=== PATIENT | female | born 1990 | race Caucasian/White ===

== ENCOUNTER 2016-06-04 15:37 | Emergency (ER) | payer OTHER ==
[2016-06-04 16:05] VITALS: BP 105/63
--- NOTE | 2016-06-04 16:46 | UC ---
Dental HPI - HPI Summary HPI Summary: PT HAD 4 UPPER FRONT TEETH GROUND DOWN AND CAPS PLACED THIS MORNING 8:30AM BY DR. COLEY AT [facility]. HAS HAD BLEEDING AND PAIN SINCE THE PROCEDURE. COMES IN NOW WITH RIGHT LATERAL INCISOR AND CANINE ENCASED IN A LARGE BLOOD CLOT. PT HAS IBUPROFEN AND AMOXICILLIN FROM DENTIST. - History of Current Complaint Chief Complaint: UCDentalProblem Stated Complaint: DENTAL ABCESS FROM PROCEDURE Time Seen by Provider: 06/04/16 16:15 Hx Obtained From: Patient Hx Last Menstrual Period: IUD Onset/Duration: Gradual Onset, Lasting Hours, Still Present Severity: Moderate Pain Intensity: 8 Pain Scale Used: 0-10 Numeric Aggravating: Nothing Alleviating: Nothing - Allergies/Home Medications Allergies/Adverse Reactions: Allergies Allergy/AdvReac Type Severity Reaction Status Date / Time No Known Allergies Allergy Verified 06/04/16 15:55 PMH/Surg Hx/FS Hx/Imm Hx Endocrine History Of: Denies: Diabetes, Thyroid Disease Cardiovascular History Of: Denies: Cardiac Disorders, Hypertension Respiratory History Of: Reports: Asthma - excercise induced Denies: COPD GI/ History Of: Denies: Ulcer Neurological History Of: Denies: CVA - Surgical History Surgical History: Yes Surgery Procedure, Year, and Place: 2 CSECTIONS - Family History Known Family History: Positive: Cardiac Disease, Blood Disorder - DVT, Other - CVA - Social History Alcohol Use: None Substance Use Type: None Smoking Status (MU): Heavy Every Day Tobacco Smoker Type: Cigarettes Amount Used/How Often: 1/2 PPD Length of Time of Smoking/Using Tobacco: 7 YEARS Have You Smoked in the Last Year: Yes Household Exposure Type: Cigarettes Review of Systems Constitutional: Negative Skin: Negative ENT: Dental Pain - BLEEDING Respiratory: Negative Cardiovascular: Negative Gastrointestinal: Negative All Other Systems Reviewed And Are Negative: Yes Physical Exam Triage Information Reviewed: Yes Appearance: Well-Appearing, Well-Nourished, Pain Distress - MODERATE Vital Signs: Initial Vital Signs Temp 98.5 F 06/04/16 15:56 Pulse 66 06/04/16 15:56 Resp 18 06/04/16 15:56 BP 105/63 06/04/16 15:56 Pulse Ox 99 06/04/16 15:56 Vital Signs Reviewed: Yes Eyes: Positive: Conjunctiva Clear ENT: Positive: Hearing grossly normal Dental: Positive: Other: - GENERAL POOR DENTITION. RIGHT UPPER LATERAL INCISOR AND CANINE ENCLOSED IN A BLOOD CLOT. Neck: Positive: Supple Respiratory: Positive: No respiratory distress, No accessory muscle use Cardiovascular: Positive: Pulses Normal Abdomen Description: Positive: Soft Musculoskeletal: Positive: No Edema Neurological: Positive: Alert Psychological: Positive: Age Appropriate Behavior Skin: Negative: rashes Dental Complaint Course/Dx - Course Course Of Treatment: BLOOD CLOT CLEANED OFF. MOUTH GENTLY RINSED WITH SALINE. NO ACTIVE BLEEDING SEEN. - Differential Dx/Diagnosis Provider Diagnoses: BLOOD CLOT S/P DENTAL PROCEDURE - Physician Notification/Consults Discussed Patient Care With: DR. SAM COLEY (DENTIST) Time Discussed With Above Provider: 16:25 - ADVISED TO CLEAN CLOT OFF. WILL SEE PT IN OFFICE IF NEEDED Discharge - Discharge Plan Condition: Stable Disposition: HOME Prescriptions: Hydrocodone-Acetaminophen [Lorcet 5-325 mg] 1 tab PO QID PRN #10 tab MDD 4 PRN Reason: Pain Referrals: Katlin Draper MD [Primary Care Provider] - If Needed Additional Instructions: YOU HAD SOME RESIDUAL BLEEDING FROM YOUR DENTAL PROCEDURE EARLIER TODAY. IT FORMED A BLOOD CLOT AROUND YOUR TEETH. THIS HAS BEEN CLEANED OFF. YOU DO NOT APPEAR TO HAVE ANY MORE ACTIVE BLEEDING BUT IF YOU DO CONTINUE TO OOZE PUT PRESSURE ON IT WITH CLEAN GAUZE. THIS SHOULD STOP OVER THE NEXT DAY OR 2. IF YOU DO NOT RECOVER EXPECTED FOLLOW-UP WITH DR. COLEY ON TUESDAY. RETURN HERE OR GO TO THE ER IF YOUR SYMPTOMS WORSEN OVER THE WEEKEND. GENTLY RINSE YOUR MOUTH THROUGHOUT THE DAY TO KEEP THE AREA CLEAN.
== END 2016-06-04 16:53 | disposition home or self-care (01) ==
LOC: UCEAST 15:37
DX: Z98.811 Dental restoration status (principal); T81.89XA Other complications of procedures, not elsewhere classified, initial encounter; F17.210 Nicotine dependence, cigarettes, uncomplicated
CPT/HCPCS: 99212; G0463

== ENCOUNTER 2016-07-16 14:27 | Emergency (ER) | payer SELFPAY ==
[2016-07-16] MEDS ORDERED: Ketorolac INJ* 60 MG/2 ML VIAL IM ONE (15:38)
--- NOTE | 2016-07-16 15:41 | UC ---
Upper Extremity HPI - HPI Summary HPI Summary: 25M presents with left wrist pain s/p smashing a bowl against her hand on Tuesday at work. She states pain is greatest over radial aspect of her hand. She is right handed. She has been taking ibuprofen 800 mg and Tylenol 500mg every 8 hours without relief. [facility] was seen at [facility] and they said she had a contusion. She was given a brace which she has been wearing. She has been icing the area. She works as gaming cage cashier and stocks shelves. - History of Current Complaint Hx Last Menstrual Period: IUD <Jeannine Bustos - Last Filed: 07/16/16 18:03> <Deana Julian - Last Filed: 07/17/16 00:48> - History of Current Complaint Stated Complaint: WRIST INJURY Time Seen by Provider: 07/16/16 15:30 - Allergies/Home Medications Allergies/Adverse Reactions: Allergies Allergy/AdvReac Type Severity Reaction Status Date / Time Clindamycin Allergy Vomiting Verified 07/16/16 16:00 Home Medications: Home Medications Acetaminophen [Acetaminophen Extra Stren] 500 mg PO 07/16/16 [History] Ibuprofen [Advil] 800 mg PO 07/16/16 [History] PMH/Surg Hx/FS Hx/Imm Hx Endocrine History Of: Denies: Diabetes, Thyroid Disease Cardiovascular History Of: Denies: Cardiac Disorders, Hypertension Respiratory History Of: Reports: Asthma - excercise induced Denies: COPD GI/ History Of: Denies: Ulcer Neurological History Of: Denies: CVA - Surgical History Surgical History: Yes Surgery Procedure, Year, and Place: 2 CSECTIONS - Family History Known Family History: Positive: Cardiac Disease, Blood Disorder - DVT, Other - CVA - Social History Alcohol Use: None Substance Use Type: None Smoking Status (MU): Heavy Every Day Tobacco Smoker Type: Cigarettes Amount Used/How Often: 1/2 PPD Length of Time of Smoking/Using Tobacco: 7 YEARS Have You Smoked in the Last Year: Yes Household Exposure Type: Cigarettes <Jeannine Bustos - Last Filed: 07/16/16 18:03> Review of Systems Constitutional: Negative Respiratory: Negative Cardiovascular: Negative Musculoskeletal: Decreased ROM - left wrist, Myalgia - left wrist All Other Systems Reviewed And Are Negative: Yes <Jeannine Bustos - Last Filed: 07/16/16 18:03> Physical Exam Triage Information Reviewed: Yes Vital Signs Reviewed: Yes Eyes: Positive: Conjunctiva Clear Respiratory: Positive: Lungs clear, Normal breath sounds Cardiovascular: Positive: RRR Musculoskeletal: Positive: ROM Limited @ - left wrist due to pain, Other: - good pulses, capillary refill < 2 secs, tenderness along radial aspect of wrist , pos snuff box tenderness <Jeannine Bustos - Last Filed: 07/16/16 18:03> Vital Signs: Initial Vital Signs Temp 99.1 F 07/16/16 15:56 Pulse 86 07/16/16 15:56 Resp 18 07/16/16 15:56 BP 127/87 07/16/16 15:56 Pulse Ox 98 07/16/16 15:56 <Deana Julian - Last Filed: 07/17/16 00:48> Upper Extremity Course/Dx - Course Course Of Treatment: 25F presents with left wrist injury on Tuesday07/13/16. according to patient she was trying to throw some trash in the dumpster when her co-worker threw a glass bowl at her left wrist. she states the bowl struck her along the distal end of the radius. She states her pain has spread into her left thumb. She denies any numbness or tingling. [facility] was [facility] and had neg xray and given a wrist splint. due to potential tenderness in snuff box got repeat xray which normal. placed in thumb spica splint in case has scaphoid fracture. told to follow up with ortho. patient was not happy that would not give narcotics as did not feel mechanism justified. dr julian spoke with patient and wrote script for pain medication. patient understands and agrees with plan - Differential Dx/Diagnosis Differential Diagnosis/HQI/PQRI: Contusion, Fracture (Closed), Strain, Sprain Provider Diagnoses: contusion of left wrist <Jeannine Bustos - Last Filed: 07/16/16 18:03> - Course Course Of Treatment: THE FOLLOWING IS AN ADDENDUM WRITTEN BY DR JULIAN: I WAS ASKED BY NURSING TO SEE PT SHE WAS COMPLAINING ABOUT PLAN OF CARE. I REVIEWED THE NOTE. PT SEEN AND EXAMINED BY ME. H&P C/W WITH [facility] REPORTING. PHYSICAL EXAM IS NOTABLE FOR SNUFF BOX TENDERNESS. AT THIS POINT, MY ASSESSMENT AND PLANNED DIVERGES FROM [facility]. EVEN THOUGH MECHANISM OF INJURY IS NOT THE TYPICAL CAUSE OF SCAPHOID FX, PT DOES HAVE EXQUISITE SNUFF BOX TENDERNESS. I ALWAYS TREAT SNUFF BOX TENDERNESS A FX UNTIL PROVEN OTHERWISE. SO I HAVE ADDED THE DX SUSPECTED FX. I THEREFORE REVISED PLAN OR CARE RECOMMEDING ORTHO FOLLOW UP AT 7 DAYS S/P INJURY, CONTINUOUS USE OF THUMB SPICA SPLINT UNTIL CLEARED BY ORTHO. I ALSO GAVE PT SHORT COURSE OF TYLENOL 3 FOR PAIN CONTROL AND D/C'ED NSAIDS. - Differential Dx/Diagnosis Provider Diagnoses: SUSPECTED FX- R/O SCAPHOID FX <Deana Julian - Last Filed: 07/17/16 00:48> Discharge <Jeannine Bustos - Last Filed: 07/16/16 18:03> <Deana Julian - Last Filed: 07/17/16 00:48> - Discharge Plan Condition: Good Disposition: HOME Prescriptions: Acetaminop/Codeine 30 MG TAB* [Tylenol/Codeine 30 MG TAB*] 1 tab PO Q6H PRN #14 tab MDD 4 tabs PRN Reason: Pain Patient Education Materials: Wrist Injury (ED), Suspected Fracture (ED) Forms: *Work Release Referrals: Quentin Suresh MD [Medical Doctor] - (Follow up on 07/19/16 or 07/20/16.) Katlin Draper MD [Primary Care Provider] - Additional Instructions: Take Tylenol every 6 hours as needed for pain. Stop taking Ibuprofen. Apply ice, rest, elevate, keep brace on area. ACETAMINOPHEN WITH CODEINE: You have been given a prescription for acetaminophen with codeine for pain control. Codeine is a narcotic. It is best taken with food, as nausea can result if taken on an empty stomach. Don't operate machinery or drive within six hours of taking this medication. Do not combine this medication with alcohol, or with any sedative type medicine such as cold tablets or sleeping pills unless your doctor gives permission. Narcotics tend to cause constipation. It's best to get plenty of fluids, fiber, and fruits. Return to ED if develop any new or worsening symptoms. Your history and exam is suspicous for possible occult fracture of the scaphoid bone. This is a fracture that can have a bad outcome if not properly immobilized. So, we will treat this as a fracture until proven otherwise. That means that you must wear the splint 24 hours a day until the ortho provider tells you otherwise. It will take 5-7 days to establish whether or not your bone is fractured so you should follow up on Tuesday or Tuesday.
--- NOTE | 2016-07-16 16:02 | RAD ---
INDICATION: Left wrist injury. TECHNIQUE: 3 views of the left wrist were obtained. FINDINGS: The bones are in normal alignment. No fracture is seen. Joint spaces appear maintained. IMPRESSION: NO EVIDENCE FOR FRACTURE.
[2016-07-16 16:48] VITALS: BP 127/87
[2016-07-16] MEDS ORDERED: Acetaminop/Codeine 30 MG TAB* 1 TAB (300 MG/30 MG) PO ONE ×2 (17:25→17:32)
== END 2016-07-16 17:40 | disposition home or self-care (01) ==
LOC: UCEAST 14:27
DX: S69.92XA Unspecified injury of left wrist, hand and finger(s), initial encounter (principal); W22.8XXA Striking against or struck by other objects, initial encounter; Y93.9 Activity, unspecified; Y92.9 Unspecified place or not applicable; Y99.0 Civilian activity done for income or pay; Z88.1 Allergy status to other antibiotic agents; J45.990 Exercise induced bronchospasm; F17.210 Nicotine dependence, cigarettes, uncomplicated
CPT/HCPCS: 96372; 99213; A9270-GY; G0463; J1885

== ENCOUNTER 2016-07-17 15:58 | Emergency (ER) | payer SELFPAY ==
[2016-07-17 16:19] VITALS: BP 121/73
--- NOTE | 2016-07-17 16:34 | UC ---
UC General HPI - HPI Summary HPI Summary: complaint of feeling bad while taking acetaminophen with codeine seen at urgent care 07/16/16 and suspected scaphoid fracture- followup with Dr Kerwin art with codeine when she takes the medication she feels nauseated and intermittent shortness of breath when on codeine denies rash, cough throat tightening constant aching pain in wrist wearing splint applying ice twice a day - History of Current Complaint Chief Complaint: UCUpperExtremity Stated Complaint: POSSIBLE ALLERGRIC REACTION Time Seen by Provider: 07/17/16 16:15 Hx Obtained From: Patient - Allergy/Home Medications Allergies/Adverse Reactions: Allergies Allergy/AdvReac Type Severity Reaction Status Date / Time Clindamycin Allergy Vomiting Verified 07/16/16 16:00 Codeine Allergy Nausea And Verified 07/17/16 16:19 Vomiting PMH/Surg Hx/FS Hx/Imm Hx Previously Healthy: No - suspected schaphoifd fracture left wrist Endocrine History Of: Denies: Diabetes, Thyroid Disease Cardiovascular History Of: Denies: Cardiac Disorders, Hypertension Respiratory History Of: Reports: Asthma - excercise induced Denies: COPD GI/ History Of: Denies: Ulcer Neurological History Of: Denies: CVA - Surgical History Surgical History: Yes Surgery Procedure, Year, and Place: 2 CSECTIONS - Family History Known Family History: Positive: Cardiac Disease, Blood Disorder - DVT, Other - CVA Negative: Hypertension, Diabetes - Social History Occupation: Employed Full-time Lives: With Family Alcohol Use: None Substance Use Type: None Smoking Status (MU): Heavy Every Day Tobacco Smoker Type: Cigarettes Amount Used/How Often: 1/2 PPD Length of Time of Smoking/Using Tobacco: 7 YEARS Have You Smoked in the Last Year: Yes Household Exposure Type: Cigarettes Cessation Counseling: Patient Advised to Stop Review of Systems Constitutional: Negative Skin: Negative Eyes: Negative ENT: Negative Respiratory: Negative Cardiovascular: Negative Gastrointestinal: Negative Genitourinary: Negative Motor: Negative Neurovascular: Negative Musculoskeletal: Other: - left wrist pain Neurological: Negative Psychological: Negative All Other Systems Reviewed And Are Negative: Yes Physical Exam Triage Information Reviewed: Yes Appearance: No Pain Distress, Well-Nourished Vital Signs: Initial Vital Signs Temp 98.6 F 07/17/16 16:15 Pulse 98 07/17/16 16:15 Resp 18 07/17/16 16:15 BP 121/73 04/29/17 16:15 Pulse Ox 100 07/17/16 16:15 Vital Signs Reviewed: Yes Eyes: Positive: Conjunctiva Clear ENT: Positive: Pharynx normal, TMs normal Neck: Positive: No Lymphadenopathy Respiratory: Positive: Lungs clear, Normal breath sounds, No respiratory distress Cardiovascular: Positive: RRR, No Murmur, Pulses Normal Abdomen Description: Positive: Nontender, Soft Bowel Sounds: Positive: Present Musculoskeletal: Positive: Other: - LUE wrist in splint-refuses exam Neurological Exam: Normal Psychological Exam: Normal Skin Exam: Normal Course/Dx - Course Course Of Treatment: exam completed. [employer] show s sveral rx for narcotics in the past. wuill rx for 2 days of medicaiton until seen by Dr Suresh - Differential Dx - Multi-Symptom Differential Diagnoses: Other - allergic reaction to codeine Provider Diagnoses: left wrist pain possible scaphoid fracture Discharge - Discharge Plan Condition: Stable Disposition: HOME Prescriptions: HYDROcodone/ACETAMIN 5-325 MG* [[place] 5-325 TAB*] 1 tab PO Q6H PRN #8 tab MDD 4 PRN Reason: Pain Patient Education Materials: Wrist Fracture in Adults (ED) Referrals: Katlin Draper MD [Primary Care Provider] - Additional Instructions: Stop taking tyelnol with codeine. EXTREMITY FRACTURE What is an Extremity Fracture? A fracture is a break in the bone, usually from an injury. A fractured bone and a broken bone are the same thing. Most fractures require some kind of a cast or splint to keep the area from moving so that the bone can heal right. Depending on the type of fracture and the bone involved, healing can take several weeks or several months. Fractures also are classified as "non-displaced" when the broken ends are still in proper position, or as "displaced" when the ends are or out of alignment. In an "open" or "compound" fracture, the bone sticks through the skin. If the skin is not open or cut the fracture is "closed. " Symptoms Might Include: Pain Swelling around the injured area You may be unable to use the extremity (hand or foot) The injured area may be deformed or bent in a way that it is not normally bent Treatment Recommendations: Rest the injured area as much as possible. For the first two days you should put ice or a cold pack on the injured area for 15 to 20 minutes four times a day. Put the ice in a plastic bag and put a towel between the bag of ice and your skin. Put the injured leg or arm up on pillows or a stool to keep it higher than your heart. This will help the swelling go down. If a splint was put on you should wear it until the healthcare provider tells you that you do not need it anymore. You should make an appointment to have your primary care provider or orthopedist (bone doctor) re-check your fracture and splint in the next one to two days. Take medicine exactly as prescribed. If you do not think it is helping call your healthcare provider. Do not increase how much or how often you take it without getting their OK first. Non-prescription anti-inflammatory medicine like ibuprofen (Motrin, Advil) or naproxen (Aleve) may help with both the pain and the swelling to your injury. You should not take these medicines if you have had bleeding in your stomach in the past. Acetaminophen (Tylenol) is another choice of medicine that may help the pain. If pain medicine that makes you tired or sleepy or contains narcotics is prescribed, you should not drink, drive, or participate in any other activities that you need to be clear-headed for. Please keep all medicines out of the reach of children. please followup with orthopedics on 07/19/2016
== END 2016-07-17 16:54 | disposition home or self-care (01) ==
LOC: UCEAST 15:58
DX: M25.532 Pain in left wrist (principal); Z88.3 Allergy status to other anti-infective agents; Z88.5 Allergy status to narcotic agent; J45.990 Exercise induced bronchospasm; F17.210 Nicotine dependence, cigarettes, uncomplicated
CPT/HCPCS: 99212; G0463

== ENCOUNTER 2017-04-23 03:51 | Emergency (ER) | payer OTHER ==
[2017-04-23 04:42] LABS: ABS Basophils 0.1 10^3/ul (0-0.2); ABS Eosinophils 0.1 10^3/ul (0-0.6); ABS Lymphocytes 2.3 10^3/ul (1.0-4.8); ABS Monocytes 0.4 10^3/ul (0-0.8); ABS Neutrophils 6.7 10^3/ul (1.5-7.7); ABS Nucleated RBC 0 10^3/ul; Eosinophil % 0.7 % (0-6); Hematocrit 48 % (35-47); Mean Corpuscular HGB Conc 35 g/dl (31-36); Mean Corpuscular Hemoglobin 31 pg (27-31); Mean Corpuscular Volume 87 fL (80-97); Mean Platelet Volume 8 um3 (7.4-10.4); Nucleated Red Blood Cells % 0; Platelet Count 246 10^3/ul (150-450); Red Blood Count 5.53 10^6/ul (4.0-5.4); Red Cell Distribution Width 13 % (10.5-15); White Blood Count 9.5 10^3/ul (3.5-10.8)
[2017-04-23 05:01] LABS: EGFR Non-African American 87.9 (>60)
[2017-04-23 05:33] LABS: Urine Appearance Cloudy; Urine Blood Negative (Negative); Urine Color Amber; Urine Ketones Trace (Negative); Urine Protein 2+(100 mg/dL) (Negative); Urine Specific Gravity 1.027 (1.010-1.030); Urine Urobilinogen Negative (Negative)
[2017-04-23] MEDS ORDERED: NS 0.9% 1000 ML* 2,000 ML IV ONE (06:28)
[2017-04-23] MEDS ORDERED: Ondansetron INJ* 2 MG/ML VIAL IV ONE (06:57)
[2017-04-23 09:05] VITALS: BP 110/59
--- NOTE | 2017-04-23 20:03 | ED ---
Mikey Hdez Tecjoon, scribed for Redd Chapman MD on 04/23/17 at 0627 . GI/ HPI - HPI Summary HPI Summary: This patient is a 26 year old female presenting to [facility] accompanied by male promotional advertising assistant with a chief complaint of N/V/D since 29. Patient states that she has had severe vomiting, over 10 times. The pain is rated 9/10 in severity. Symptoms aggravated by laying on right side. Symptoms alleviated by nothing. Patient additionally reports abd pain. Patient denies dyuria, back pain, rashes. Patient has started on Zoloft today for depression - History of Current Complaint Chief Complaint: EDNauseaVomitDiarrh Stated Complaint: VOMITING Hx Obtained From: Patient Hx Last Menstrual Period: 06/17/16 Onset/Duration: Started Hours Ago - 6, Still Present Timing: Constant Severity: Moderate Current Severity: Moderate Pain Intensity: 9 - /10 Location of Pain: Diffuse Associated Signs and Symptoms: Positive: Negative - dyuria, back pain, rashes, Other: - abd pain Aggravating Factor(s): Movement - laying on right side Alleviating Factor(s): Nothing - Allergy/Home Medications Allergies/Adverse Reactions: Allergies Allergy/AdvReac Type Severity Reaction Status Date / Time MS Clindamycin [Clindamycin] Allergy Vomiting Verified 04/23/17 04:31 MS Codeine [Codeine] Allergy Nausea And Verified 04/23/17 04:31 Vomiting PMH/Surg Hx/FS Hx/Imm Hx Previously Healthy: Yes Endocrine/Hematology History: Denies: Hx Diabetes, Hx Thyroid Disease Cardiovascular History: Denies: Hx Hypertension Respiratory History: Reports: Hx Asthma - excercise induced Denies: Hx Chronic Obstructive Pulmonary Disease (COPD) GI History: Denies: Hx Ulcer Neurological History: Denies: Other Neuro Impairments/Disorders Psychiatric History: Reports: Hx Depression - Surgical History Surgery Procedure, Year, and Place: 2 CSECTIONS - Immunization History Date of Tetanus Vaccine: unk Date of Influenza Vaccine: none Infectious Disease History: No Infectious Disease History: Denies: Hx Clostridium Difficile, Hx Hepatitis, Hx Human Immunodeficiency Virus (HIV), Hx of Known/Suspected MRSA, Hx Shingles, Hx Tuberculosis, Hx Known/ Suspected VRE, Hx Known/Suspected VRSA, History Other Infectious Disease, Traveled Outside the [place] in Last 30 Days - Family History Known Family History: Positive: Cardiac Disease, Blood Disorder - DVT, Other - CVA Negative: Hypertension, Diabetes - Social History Alcohol Use: None Hx Substance Use: No Substance Use Type: Reports: None Hx Tobacco Use: Yes Smoking Status (MU): Heavy Every Day Tobacco Smoker Type: Cigarettes Amount Used/How Often: 1/2 PPD Length of Time of Smoking/Using Tobacco: 7 YEARS Have You Smoked in the Last Year: Yes Review of Systems Positive: Abdominal Pain, Vomiting, Diarrhea, Nausea Negative: dysuria Musculoskeletal: Negative - back pain Skin: Negative - rashes All Other Systems Reviewed And Are Negative: Yes Physical Exam - Summary Physical Exam Summary: Appearance: Well-appearing, Well-nourished Skin: Warm Eyes: Normal ENT: Normal Neck: Supple, nontender Respiratory: Clear to auscultation Cardiovascular: Normal S1, S2. No murmurs. Normal distal pulses in tibial and radial bilaterally. Abdomen: Soft, nontender Musculoskeletal: Normal, Strength/ROM Intact Neurological: Normal, A&Ox3 Psychiatric: Normal Triage Information Reviewed: Yes Vital Signs On Initial Exam: Initial Vitals Temp Pulse Resp BP Pulse Ox 98 F 75 16 142/107 96 04/23/17 03:55 04/23/17 03:55 04/23/17 03:55 04/23/17 03:55 04/23/17 03:55 Vital Signs Reviewed: Yes Diagnostics - Vital Signs Vital Signs Temp Pulse Resp BP Pulse Ox 04/23/17 03:55 98 F 75 16 142/107 96 - Laboratory Lab Results: Lab Results 04/23/17 04/23/17 04/23/17 Range/Units 04:20 04:20 05:10 WBC 9.5 (3.5-10.8) 10^3/ul RBC 5.53 H (4.0-5.4) 10^6/ul Hgb 17.0 H (12.0-16.0) g/dl Hct 48 H (35-47) % MCV 87 (80-97) fL MCH 31 (27-31) pg MCHC 35 (31-36) g/dl RDW 13 (10.5-15) % Plt Count 246 (150-450) 10^3/ul MPV 8 (7.4-10.4) um3 Neut % (Auto) 70.4 (38-83) % Lymph % (Auto) 24.0 L (25-47) % [place] % (Auto) 4.2 (1-9) % Eos % (Auto) 0.7 (0-6) % Baso % (Auto) 0.7 (0-2) % Absolute Neuts (auto) 6.7 (1.5-7.7) 10^3/ul Absolute Lymphs (auto) 2.3 (1.0-4.8) 10^3/ul Absolute Monos (auto) 0.4 (0-0.8) 10^3/ul Absolute Eos (auto) 0.1 (0-0.6) 10^3/ul Absolute Basos (auto) 0.1 (0-0.2) 10^3/ul Absolute Nucleated RBC 0 10^3/ul Nucleated RBC % 0 Sodium 133 (133-145) mmol/L Potassium 4.0 (3.5-5.0) mmol/L Chloride 104 (101-111) mmol/L Carbon Dioxide 21 L (22-32) mmol/L Anion Gap 8 (2-11) mmol/L BUN 9 (6-24) mg/dL Creatinine 0.78 (0.51-0.95) mg/dL Est GFR ( Amer) 113.1 (>60) Est GFR (Non-Af Amer) 87.9 (>60) BUN/Creatinine Ratio 11.5 (8-20) Glucose 121 H (70-100) mg/dL Calcium 10.0 (8.6-10.3) mg/dL Total Bilirubin 0.60 (0.2-1.0) mg/dL AST 18 (13-39) U/L ALT 15 (7-52) U/L Alkaline Phosphatase 47 (34-104) U/L C-Reactive Protein < 1.00 (< 5.00) mg/L Total Protein 7.7 (6.4-8.9) g/dL Albumin 4.9 (3.2-5.2) g/dL Globulin 2.8 (2-4) g/dL Albumin/Globulin Ratio 1.8 (1-3) Lipase < 10 L (11.0-82.0) U/L Beta HCG, Quant 0.61 mIU/mL Urine Color Bobbi Urine Appearance Cloudy Urine pH 5.0 (5-9) Ur Specific [place] 1.027 (1.010-1.030) Urine Protein 2+(100 mg/dl) H (Negative) Urine Ketones Trace H (Negative) Urine Blood Negative (Negative) Urine Nitrate Negative (Negative) Urine Bilirubin 1+ H (Negative) Urine Urobilinogen Negative (Negative) Ur Leukocyte Esterase Negative (Negative) Urine WBC (Auto) Trace(0-5/hpf) (Absent) Urine RBC (Auto) 1+(3-5/hpf) H (Absent) Ur Squamous Epith Cells Present H (Absent) Urine Bacteria Absent (Absent) Hyaline Casts Present H (Absent) Urine Glucose Negative (Negative) Influenza A (Rapid) (Negative) Influenza B (Rapid) (Negative) 04/23/17 Range/Units 05:22 WBC (3.5-10.8) 10^3/ul RBC (4.0-5.4) 10^6/ul Hgb (12.0-16.0) g/dl Hct (35-47) % MCV (80-97) fL MCH (27-31) pg MCHC (31-36) g/dl RDW (10.5-15) % Plt Count (150-450) 10^3/ul MPV (7.4-10.4) um3 Neut % (Auto) (38-83) % Lymph % (Auto) (25-47) % [place] % (Auto) (1-9) % Eos % (Auto) (0-6) % Baso % (Auto) (0-2) % Absolute Neuts (auto) (1.5-7.7) 10^3/ul Absolute Lymphs (auto) (1.0-4.8) 10^3/ul Absolute Monos (auto) (0-0.8) 10^3/ul Absolute Eos (auto) (0-0.6) 10^3/ul Absolute Basos (auto) (0-0.2) 10^3/ul Absolute Nucleated RBC 10^3/ul Nucleated RBC % Sodium (133-145) mmol/L Potassium (3.5-5.0) mmol/L Chloride (101-111) mmol/L Carbon Dioxide (22-32) mmol/L Anion Gap (2-11) mmol/L BUN (6-24) mg/dL Creatinine (0.51-0.95) mg/dL Est GFR ( Amer) (>60) Est GFR (Non-Af Amer) (>60) BUN/Creatinine Ratio (8-20) Glucose (70-100) mg/dL Calcium (8.6-10.3) mg/dL Total Bilirubin (0.2-1.0) mg/dL AST (13-39) U/L ALT (7-52) U/L Alkaline Phosphatase (34-104) U/L C-Reactive Protein (< 5.00) mg/L Total Protein (6.4-8.9) g/dL Albumin (3.2-5.2) g/dL Globulin (2-4) g/dL Albumin/Globulin Ratio (1-3) Lipase (11.0-82.0) U/L Beta HCG, Quant mIU/mL Urine Color Urine Appearance Urine pH (5-9) Ur Specific [place] (1.010-1.030) Urine Protein (Negative) Urine Ketones (Negative) Urine Blood (Negative) Urine Nitrate (Negative) Urine Bilirubin (Negative) Urine Urobilinogen (Negative) Ur Leukocyte Esterase (Negative) Urine WBC (Auto) (Absent) Urine RBC (Auto) (Absent) Ur Squamous Epith Cells (Absent) Urine Bacteria (Absent) Hyaline Casts (Absent) Urine Glucose (Negative) Influenza A (Rapid) Negative (Negative) Influenza B (Rapid) Negative (Negative) Result Diagrams: 04/23/17 04:20 04/23/17 04:20 Lab Statement: Any lab studies that have been ordered have been reviewed, and results considered in the medical decision making process. GIGU Course/Dx - Course Assessment/Plan: feels better after rehydration, instructed to fu with pmd. agrees to and understands dc instructions. - Diagnoses Provider Diagnoses: Dehydration Discharge - Discharge Plan Condition: Improved Disposition: HOME Patient Education Materials: Dehydration (ED) Referrals: Katlin Draper MD [Primary Care Provider] - Additional Instructions: PLEASE RETURN IMMEDIATELY TO THE ER IF YOU HAVE ANY WORSENING OR CONCERNING SYMPTOMS PLEASE MAKE AN APPOINTMENT TO BE SEEN BY YOUR PRIMARY CARE DOCTOR WITHIN 1 WEEK The documentation as recorded by the Mikey nam Tecjoon accurately reflects the service I personally performed and the decisions made by me, Redd Chapman MD.
== END 2017-04-23 09:04 | disposition home or self-care (01) ==
LOC: ED 03:51
DX: E86.0 Dehydration (principal); R11.2 Nausea with vomiting, unspecified; F17.210 Nicotine dependence, cigarettes, uncomplicated; R19.7 Diarrhea, unspecified; R10.9 Unspecified abdominal pain
CPT/HCPCS: 36415; 80053; 81003; 81015; 83690; 84702; 85025; 86140; 87502; 96374; 99283; J2405

== ENCOUNTER 2017-08-18 06:32 | Day surgery (SDC) | payer OTHER ==
[~2017-08-18 06:32] MED LIST: Buffered Lidocaine 0.9% SYRIN* 5 ML/SYR SYRINGE INTRADERM ONE; Famotidine IV* 10 MG/ML 2 ML (20 mg) IV ONE
[2017-08-18] MEDS ORDERED: Bupivacaine 0.25% SDV* 30 ML ONE (07:09)
[2017-08-18] MEDS ORDERED: fentaNYL* 50 MCG/ML 2 ML VIAL (100 MCG VIAL) ONE (08:03)
[2017-08-18] MEDS ORDERED: Midazolam* 1 MG/ML 5 ML VIAL (5 MG) ONE (08:04)
[2017-08-18] MEDS ORDERED: Ondansetron INJ* 2 MG/ML VIAL ONE (08:27)
[2017-08-18] MEDS ORDERED: Ketorolac INJ* 30 MG/ML 1 ML VIAL ONE (08:27)
[2017-08-18] MEDS ORDERED: Dexamethasone IV* 4 MG/ML 1 ML (4 MG) ONE (08:27)
[2017-08-18] MEDS ORDERED: DiMENhydriNATE IV* 50 MG/ML VIAL ONE (08:27)
[2017-08-18] MEDS ORDERED: Lidocaine 2% PF * 5 ML VIAL ONE (08:27)
[2017-08-18] MEDS ORDERED: Propofol* 10 MG/ML 20 ML BTL IV PUSH ONE (08:27)
[2017-08-18] MEDS ORDERED: Acetaminophen TAB* 325 MG PO PRN (08:52)
[2017-08-18] MEDS ORDERED: Ondansetron INJ* 2 MG/ML VIAL IV PRN (08:52)
[2017-08-18] MEDS ORDERED: Naloxone* 0.4 MG/ML 1 ML VIAL IV PRN (08:52)
[2017-08-18] MEDS ORDERED: Acetaminophen TAB* 325 MG ONE (09:09)
[2017-08-18 09:27] VITALS: BP 117/64
--- NOTE | 2017-08-18 16:51 | OP ---
Operative Report - Blank - Operative Report Date of Operation: 08/18/17 Note: DATE OF OPERATION: 08/18/2017 - [facility] DATE OF : 1990 SURGEON: Quentin Davis MD. WORD PROCESSING SPECIALIST: AMRIT Mares ANESTHESIOLOGIST: Dr. Gill. ANESTHESIA: Local MAC PRE-OP DIAGNOSIS: Left dequervains disease. POST-OP DIAGNOSIS: Left dequervains disease. OPERATIVE PROCEDURE: 1. Left first dorsal compartment tendon sheath release INDICATIONS: Micaela has Dequervains disease that has recurred despite injections. We talked about treatment options and the patient wanted to proceed with surgical release. ESTIMATED BLOOD LOSS: 2 mL. COMPLICATIONS: None. FINDINGS: As expected. DESCRIPTION OF PROCEDURE: Ms. Jo was seen in the preoperative holding area. The correct side, site, and procedure were identified. We came back to the operating room. I infiltrated the operative area with 0.25% Marcaine. The arm was prepped and draped in the usual fashion. Time-out was performed. The arm was exsanguinated with the Esmarch and the tourniquet was inflated to 250 mmHg. I transverse incision over the first dorsal compartment tendon sheath. Full thickness flaps were bluntly raised off the tendon sheath and the radial sensory nerve was retracted. I then longitudinally incised the first dorsal compartment tendon sheath along its dorsal margin in line with the tendons. An accessory compartment was present and the septum was released and completely excised. The tendons were completely freed. The tenosynovitis was excised. The skin was closed with 4-0 monocryl and steri-strips. The wound was dressed, tourniquet deflated, and the patient was taken to the recovery room in stable condition.
== END 2017-08-18 09:43 | disposition home or self-care (01) ==
LOC: OREAST 06:32
PROVIDERS: ATTEND Orthopaedic Surgery Hand Surgery
DX: M65.4 Radial styloid tenosynovitis [de Quervain] (principal); F17.210 Nicotine dependence, cigarettes, uncomplicated
CPT/HCPCS: 81025; A9270-GY; J1100; J1240; J1885; J2250; J2405; J2704; J3010

== ENCOUNTER 2017-10-18 10:33 | Emergency (ER) | payer SELFPAY ==
[2017-10-18 10:47] VITALS: BP 127/76
== END 2017-10-18 11:15 | disposition left against medical advice (07) ==
LOC: UCEAST 10:33
DX: R51 Headache (principal); R06.02 Shortness of breath; R53.83 Other fatigue; Z53.21 Procedure and treatment not carried out due to patient leaving prior to being seen by health care provider

== ENCOUNTER 2020-08-26 21:25 | Observation (INO) ==
[2020-08-26] MEDS ORDERED: Lactated Ringers 1000 ml BAG IV.FLUID IV ONE (23:26)
[2020-08-26] MEDS ORDERED: Morphine 4 MG/ML VIAL (1 ml) IV ONE (23:28)
[2020-08-26] MEDS ORDERED: Morphine 4 MG/ML VIAL (1 ml) IV PRN (23:28)
[2020-08-26] MEDS ORDERED: Ondansetron 4 mg VIAL 2 MG/ML 2 ml VIAL IV ONE (23:28)
[2020-08-27 00:28] LABS: ABS Lymphocytes 0.9 10^3/ul (1.0-4.8); ABS Monocytes 0.8 10^3/ul (0-0.8); ABS Neutrophils 9.9 10^3/ul (1.5-7.7); Eosinophil % 0.1 %; Hematocrit 41 % (35-47); Hemoglobin 14.1 g/dL (12.0-16.0); Mean Corpuscular HGB Conc 35 g/dL (31-36); Mean Corpuscular Hemoglobin 31 pg (27-31); Mean Corpuscular Volume 88 fL (80-97); Mean Platelet Volume 8.3 fL (7.4-10.4); Platelet Count 205 10^3/uL (150-450); Red Blood Count 4.58 10^6 /uL (3.70-4.87); Red Cell Distribution Width 13 % (10-15); White Blood Count 11.5 10^3/uL (3.5-10.8)
[2020-08-27 00:38] LABS: Activated Partial Thrombo Time 31.2 seconds (26.0-38.0); INR 1.1 (0.82-1.09)
[2020-08-27 00:49] LABS: ALT 24 U/L (7-52); AST 22 U/L (13-39); Albumin 4.1 g/dL (3.2-5.2); Albumin/Globulin Ratio 1.5 (1-3); Alkaline Phosphatase 53 U/L (35-149); Anion Gap 6 mmol/L (2-11); Blood Urea Nitrogen 7 mg/dL (6-24); C Reactive Protein 54.78 mg/L (<8.01); CO2 Carbon Dioxide 25 mmol/L (22-32); Calcium 8.9 mg/dL (8.6-10.3); Chloride 103 mmol/L (101-111); EGFR African American 113.6 (>60); EGFR Non-African American 93.9 (>60); Globulin 2.8 g/dL (2-4); Glucose 114 mg/dL (70-100); Potassium 3.6 mmol/L (3.5-5.0); Sodium 134 mmol/L (135-145); Total Protein 6.9 g/dL (6.4-8.9)
[2020-08-27 00:57] LABS: Influenza A Molecular Negative (Negative); Influenza B Molecular Negative (Negative)
[2020-08-27] MEDS ORDERED: Iohexol 300 (CONTRAST) 10 ML SDV IV ONE (01:03)
[2020-08-27 03:10] LABS: Urine Appearance Cloudy; Urine Bilirubin Negative (Negative); Urine Blood 1+ (Negative); Urine Color Yellow; Urine Glucose Negative (Negative); Urine Ketones 1+ (Negative); Urine Nitrite Negative (Negative); Urine Protein Negative (Negative); Urine Urobilinogen Negative (Negative)
[2020-08-27 03:16] LABS: Urine Bacteria 1+ (Absent); Urine Red Blood Cell 2+(6-10/hpf) (Absent); Urine Squamous Epithelial Cell Present (Absent); Urine White Blood Cell 3+(>20/hpf) (Absent)
[2020-08-27] MEDS ORDERED: cefTRIAXone 1 gm/50 mL NS BAG 1 GM/50 ML BAG IV ONE (03:34)
[2020-08-27] MEDS ORDERED: Droperidol 5 MG/2 ML 2 ML VIAL IV ONE (04:28)
[2020-08-27] MEDS ORDERED: NS 0.9% 1000 ml BAG 1,000 ML IV SCH (05:15)
[2020-08-27 05:39] LABS: Lipase < 10 U/L (11.0-82.0)
[2020-08-27] MEDS ORDERED: cefTRIAXone 1 gm/50 mL NS BAG 1 GM/50 ML BAG IVPB SCH (07:00)
[2020-08-27] MEDS ORDERED: Morphine 4 MG/ML VIAL (1 ml) IV PRN (07:00)
[2020-08-27] MEDS ORDERED: CMCS:Ketoconazole 2 % CREAM (NF) 30 GM TUBE TOPICAL SCH (09:00)
[2020-08-27 09:29] LABS: HCG Pregnancy < 0.60 mIU/mL
[2020-08-27] MEDS ORDERED: Morphine 2 MG/ML SYRINGE IV PRN (11:00)
[2020-08-27 11:05] VITALS: BP 123/76
== END 2020-08-27 13:25 | disposition home or self-care (01) ==
LOC: ED 21:25 → MEDTELE 08-27 05:08 → INTOOBSV 08-27 05:08 → MEDTELE 08-27 09:38
PROVIDERS: ADMIT Internal Medicine; ATTEND Student in an Organized Health Care Education/Training Program

== ENCOUNTER 2023-11-01 13:03 | Observation (INO) ==
[2023-11-01 13:43] LABS: ABS Basophils 0.1 10^3/uL (0.0-0.1); ABS Lymphocytes 1.8 10^3/uL (1.0-4.8); ABS Monocytes 0.7 10^3/uL (0.0-0.9); ABS Neutrophils 17.1 10^3/uL (1.5-7.6); Hematocrit 44.3 % (35-45); Hemoglobin 15.4 g/dL (11.5-14.3); Mean Corpuscular Hgb Conc 34.7 g/dL (31-36); Mean Corpuscular Volume 92.1 fL (80-97); Mean Platelet Volume 8.1 fL (7.5-11.2); Platelet Count 334 10^3/uL (150-450); Red Blood Count 4.81 10^6/uL (3.63-4.92); Red Cell Distribution Width 13.9 % (12-17); White Blood Count 19.6 10^3/uL (3.8-11.8)
[2023-11-01] MEDS: Lactated Ringers 1000 ml BAG 1,000 ML IV SCH ×2 (14:00→23:09)
[2023-11-01 14:08] LABS: HCG Pregnancy < 0.60 mIU/mL
[2023-11-01 15:38] LABS: ALT 19 U/L (7-52); AST 20 U/L (13-39); Albumin 5.2 g/dL (3.2-5.2); Alcohol, S < 13 mg/dL (<13); Alkaline Phosphatase 62 U/L (35-149); Anion Gap 15 mmol/L (2-16); Blood Urea Nitrogen 13 mg/dL (6-24); C Reactive Protein < 1.00 mg/L (<8.01); CO2 Carbon Dioxide 24 mmol/L (22-32); Calcium 10.5 mg/dL (8.6-10.3); Chloride 100 mmol/L (101-111); Creatinine, Serum 0.68 mg/dL (0.51-0.95); Globulin 2.6 g/dL (2-4); Glucose 111 mg/dL (70-100); Lipase < 10 U/L (11.0-82.0); Potassium 3.8 mmol/L (3.5-5.0); Sodium 139 mmol/L (135-145); Total Bilirubin 0.6 mg/dL (0.2-1.0); Total Protein 7.8 g/dL (6.4-8.9); eGFR CKD-EPI 116.4 (>60)
[2023-11-01] MEDS: Ondansetron 4 mg VIAL 2 MG/ML 2 ml VIAL IV ONE ×2 (15:55→18:22)
[2023-11-01] MEDS: Famotidine IV 10 MG/ML 2 ml VIAL (20 mg) IV SLOW PU ONE (15:55)
[2023-11-01] MEDS: Acetaminophen IV 1 GM/100ML 1,000 MG/100 ML BAG IV ONE (16:00)
[2023-11-01 16:19] LABS: Urine Appearance Turbid; Urine Bilirubin Negative (Negative); Urine Blood Negative (Negative); Urine Glucose Negative (Negative); Urine Ketones 1+ (Negative); Urine Nitrite Negative (Negative); Urine Protein 1+ (>=30 mg/dL) (Negative); Urine Specific Gravity 1.023 (1.002-1.030); Urine Urobilinogen Negative (Negative)
[2023-11-01] MEDS: Iohexol 300 (CONTRAST) 10 ML SDV IV ONE (16:45)
[2023-11-01 16:48] LABS: Urine Amorphous Crystals Present /HPF (Absent); Urine Bacteria 1+ /HPF (Absent); Urine Red Blood Cell Trace(0-2/hpf) /HPF (0-Trace); Urine Squamous Epithelial Cell Present /HPF (Absent); Urine White Blood Cell Trace(0-5/hpf) /HPF (0-Trace)
[2023-11-01] MEDS: cefTRIAXone 1 gm/50 mL D5W 1 GM/50 ML BAG IV ONE (17:41)
[2023-11-01 17:45] LABS: High Sensitivity Troponin 1 Hr 205 pg/mL (<15)
[2023-11-01 18:13] LABS: Urine Color Yellow
[2023-11-01] MEDS: Morphine 4 MG/ML VIAL (1 ml) IV ONE (18:22)
[2023-11-01 20:13] LABS: High Sensitivity Troponin 3 Hr 208 pg/mL (<15)
[2023-11-01] MEDS ORDERED: LevoCETirizine 5 mg TAB (NF) PO ONE (21:42)
[2023-11-01] MEDS ORDERED: Morphine 2 MG/ML SYRINGE IV PRN (22:08)
[2023-11-01 23:01] LABS: Cholesterol 260 mg/dL; HDL Cholesterol 102.4 mg/dL; LDL Cholesterol 140 mg/dL; Triglycerides 90 mg/dL
[2023-11-01] MEDS: Enoxaparin 60 MG/0.6 ML SYR SUBCUT SCH (23:09)
[2023-11-01] MEDS: Morphine 2 MG/ML SYRINGE IV PRN (23:10)
[2023-11-02] MEDS: Iohexol 350 (CONTRAST) 500 ML MDV IV ONE (00:09)
[2023-11-02 06:11] LABS: ABS Basophils 0.1 10^3/uL (0.0-0.1); ABS Lymphocytes 2.6 10^3/uL (1.0-4.8); ABS Monocytes 0.7 10^3/uL (0.0-0.9); ABS Neutrophils 6.1 10^3/uL (1.5-7.6); ABS Nucleated RBC 0.01 10^3/ul; Eosinophil % 0.3 %; Hematocrit 39.3 % (35-45); Hemoglobin 13.7 g/dL (11.5-14.3); Lymphocyte % 27.1 %; Mean Corpuscular Hemoglobin 32.7 pg (27-33); Mean Corpuscular Hgb Conc 34.9 g/dL (31-36); Mean Corpuscular Volume 93.8 fL (80-97); Mean Platelet Volume 8.1 fL (7.5-11.2); Nucleated Red Blood Cells % 0.1 %/100WBC (0.0-0.8); Platelet Count 254 10^3/uL (150-450); Red Blood Count 4.18 10^6/uL (3.63-4.92); Red Cell Distribution Width 13.8 % (12-17); White Blood Count 9.4 10^3/uL (3.8-11.8)
[2023-11-02 07:08] LABS: Creatinine, Serum 0.58 mg/dL (0.51-0.95); Magnesium 1.7 mg/dL (1.9-2.7); Potassium 3.3 mmol/L (3.5-5.0)
[2023-11-02 08:04] LABS: High Sensitivity Troponin 1 Hr 87 pg/mL (<15)
[2023-11-02] MEDS: Sulfur Hexaflouride MICROSPHR 25 MG VIAL IV ONE (08:22)
[2023-11-02] MEDS: Ondansetron 4 mg VIAL 2 MG/ML 2 ml VIAL IV PRN (08:40)
[2023-11-02] MEDS: Magnesium Sulfate 2 gm BAG 2 GM/50 ML BAG IVPB ONE (08:53)
[2023-11-02] MEDS: Potassium Chlor 20 meq TAB.ER PO ONE (09:40)
[2023-11-02 13:32] VITALS: BP 145/93
[2023-11-02] MEDS: cefTRIAXone 1 gm/50 mL D5W 1 GM/50 ML BAG IV SCH (15:55)
== END 2023-11-02 17:13 | disposition home or self-care (01) ==
LOC: ED 13:03 → EDHOLD 13:03 → MEDTELE 23:39
PROVIDERS: ADMIT Student in an Organized Health Care Education/Training Program; ATTEND Student in an Organized Health Care Education/Training Program